=== PATIENT | male | born 1940 | race Caucasian/White ===

== ENCOUNTER 2019-03-15 14:04 | Inpatient (IN) | payer MEDICARE, OTHER ==
[~2019-03-15] VITALS: Ht 167.6 cm; Wt 78.0 kg
[~2019-03-15 14:04] MED LIST: AMIO200T PO; AMIO200T7 PO; AMLO-150 PO; AMLO5TAB4 PO; APIX5TAB PO; ASCO100019 PO; ASPI-515 PO; ASPI81TA45 PO; BUPR100T5 PO; CEFD300C37 PO; CLOP75TA52 PO; DIAZ5TAB PO; EZET10TA18 PO; FURO-92 PO; IBUP-1222 PO; MAGN400T26 PO; MECL-76 PO; METO-93 PO; METO25TA35 PO; MONT10TA9 PO; MULT-658 PO; NEPA3DRO LEFTEYE; NEVANAC 0.1% LEFTEYE; NIAC100035 PO; NITR2.5C3; OMEG1CAP6 PO; OMEP-110 PO; ONDA4TAB12 PO; OXYC-302 PO; OXYC-307 PO; OXYC10TA6 PO; OXYC1TAB7 PO; OXYC7.5T PO; PANT40TA5 PO; POLY17PO5 PO; POTA20TA6 PO; PRED20TA PO; PRED5TAB PO; RAMI10CA36 PO; RAMI10CA59 PO; TAMS-11 PO; TEMA30CA PO; TRAM50TA2 PO; UBID100C24 PO; [UNRECOGNIZED DRUG - CODE] PO
--- NOTE | 2019-03-15 14:17 | NUR ---
PT BIB CARE FLIGHT FROM [place] AFTER GLF AT HOME CAUSING R HIP FX. PT CURRENTLY ON HOSPICE, FTT AND DEMENTIA. POOR HISTORIAN. 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 CONNECTED TO ALL MONITORING, TACHY HR (AFIB), HTN, RAPID RR. BILATERAL PEDAL PULSES DOPPLERED AND MARKED. MD TO BEDSIDE. AWAITING FURTHER ORDERS AT THIS TIME. CALL LIGHT WITHIN REACH
--- NOTE | 2019-03-15 14:37 | NUR ---
ORDERS RECEIVED AT THIS TIME
--- NOTE | 2019-03-15 14:46 | NUR ---
LABS AND RAD AT BEDSIDE
--- NOTE | 2019-03-15 14:51 | NUR ---
NO MED LIST RECEIVED FROM SENDING FACILITY, UNABLE TO COMPLETE MED REC AT THIS TIME
[2019-03-15 14:55] LABS: BASOPHILS # (AUTO) 0.04 x10^3/uL (0-0.1); BASOPHILS % (AUTO) 0 % (0-1); EOSINOPHILS # (AUTO) 0.05 x10^3/uL (0-0.4); EOSINOPHILS % (AUTO) 0 % (1-7); LYMPHOCYTES # (AUTO) 1.14 x10^3/uL (1-3.4); LYMPHOCYTES % (AUTO) 9 % (22-44); MD NO; MEAN CORPUSCULAR HEMOGLOBIN 26.7 pg (27.5-34.5); MEAN CORPUSCULAR HGB CONC 32.7 g/dL (33.2-36.2); MEAN CORPUSCULAR VOLUME 81.8 fL (81-97); MEAN PLATELET VOLUME 7.7 fL (7.4-10.4); MONOCYTES # (AUTO) 1.08 x10^3/uL (0.2-0.8); MONOCYTES % (AUTO) 9 % (2-9); NEUTROPHILS # (AUTO) 10.25 x10^3/uL (1.8-6.8); NEUTROPHILS % (AUTO) 82 % (42-75); PLATELET COUNT 284 x10^3/uL (130-400); RED BLOOD COUNT 5.38 x10^6/uL (4.38-5.82); RED CELL DISTRIBUTION WIDTH 16.4 % (9.4-14.8)
[2019-03-15 14:59] LABS: INTERNATIONAL NORMALIZED RATIO 1.07 (0.93-1.1); PROTHROMBIN TIME 11.2 Seconds (9.6-11.5)
[2019-03-15 15:03] LABS: ALBUMIN 2.8 g/dL (3.4-5.0); ANION GAP 10 mmol/L (5-15); CALCIUM 9.4 mg/dL (8.5-10.1); CHLORIDE 103 mmol/L (98-107)
[2019-03-15 15:04] LABS: CREATININE 1.26 mg/dL (0.7-1.3)
--- NOTE | 2019-03-15 15:23 | NUR ---
ALL RESULTS BACK AT THIS TIME, CHART UP FOR RECHECK
--- NOTE | 2019-03-15 15:30 | NUR ---
SW TO BEDSIDE.
[2019-03-15] MEDS ORDERED: DILTIAZEM 5 MG/ML, 5ML ONE ×2 (15:59→18:11)
[2019-03-15] MEDS ORDERED: DILTIAZEM 5 MG/ML, 5ML IVPush ONE ×2 (16:00→17:30)
[2019-03-15] MEDS ORDERED: CEFTRIAXONE PMX 1GM/50ML 50 ML IV ONE (16:00)
[2019-03-15] MEDS ORDERED: FENTANYL PF 100 MCG/2ML IV ONE ×2 (16:00→17:00)
--- NOTE | 2019-03-15 16:03 | NUR ---
REPORT RECEIVED FROM RN NANDO FREY. ASSUMED CARE OF PT. PT CURRENTLY RESTING ON GURNEY. PER , PT IS "VERY HARD OF HEARING". DIFFICULTY TO ASCERTAIN PT'S ORIENTATION D/T THIS. PT MEDICATED ORDERED FOR AFIB NOTED ON CARDIAC MONITORS 120'S-130S. PT ON CONT BP, CARDIAC AND O2 MONITORS. CALL LIGHT WITHIN REACH. WILL CONT TO MONITOR PT.
[2019-03-15] MEDS ORDERED: FENTANYL PF 100 MCG/2ML ONE ×2 (16:17→17:01)
[2019-03-15] MEDS ORDERED: CEFTRIAXONE PMX 1GM/50ML 50 ML ONE (16:17)
[2019-03-15] MEDS ORDERED: ETOMIDATE 20 MG/10 ML ONE (16:37)
--- NOTE | 2019-03-15 16:54 | NUR ---
CONSENT SIGNED FOR REDUCTION OF RIGHT HIP
[2019-03-15] MEDS ORDERED: ETOMIDATE 20 MG/10 ML IVPush ONE (17:00)
[2019-03-15] MEDS ORDERED: DILTIAZEM 125 MG in SODIUM CHLORIDE 0.9% 100 ML IV SCH (17:04)
--- NOTE | 2019-03-15 17:38 | NUR ---
CON SED COMPLETE, KNEE IMMOBILIZER APPLIED TO RIGHT LEG THEN PT TAKEN TO CT FOR SCAN. PT TOLERATED WELL. VSS DURING AND AFTER PROCEDURE. AT BEDSIDE. HOSPITALIST AT BEDSIDE FOR ADMIT ASSESSMENT. PT SLEEPING INTERMITTENTLY IN BED. ARGENIS. REPORT GIVEN TO SUDARSHAN TAMEZ
--- NOTE | 2019-03-15 17:38 | NUR ---
ADMITTING MAME MCNEILL AT BEDSIDE FOR EVAL AT THIS TIME. AT BEDSIDE. PT ON CONT BP, CARDIAC AND O2 MONITORS. CALL LIGHT WITHIN REACH. WILL CONT TO MONITOR PT.
--- NOTE | 2019-03-15 18:56 | NUR ---
REPORT GIVEN TO OLEG TAMEZ, PT READY FOR TRANSPORT
[2019-03-15] MEDS: MORPHINE SULFATE 4 MG/ML, 1ML IVPush PRN (19:44)
[2019-03-15 20:36] VITALS: BP 131/72
[2019-03-15] MEDS: D5%-0.45% NACL 1,000 ML IV SCH (22:07)
[2019-03-15 22:11] VITALS: BP 131/72
[2019-03-15] MEDS ORDERED: FINA5TAB4 PO (23:59)
[2019-03-15] MEDS ORDERED: BUPR150T73 PO (23:59)
[2019-03-15] MEDS ORDERED: PRED5TAB PO (23:59)
[2019-03-16 00:34] VITALS: BP 107/64
[2019-03-16] MEDS: DILTIAZEM 125 MG in SODIUM CHLORIDE 0.9% 100 ML IV SCH ×2 (01:04→05:37)
[2019-03-16 05:15] LABS: BASOPHILS # (AUTO) 0.05 x10^3/uL (0-0.1); BASOPHILS % (AUTO) 0 % (0-1); EOSINOPHILS # (AUTO) 0.01 x10^3/uL (0-0.4); EOSINOPHILS % (AUTO) 0 % (1-7); LYMPHOCYTES # (AUTO) 1.31 x10^3/uL (1-3.4); LYMPHOCYTES % (AUTO) 12 % (22-44); MD NO; MEAN CORPUSCULAR HEMOGLOBIN 26.6 pg (27.5-34.5); MEAN CORPUSCULAR HGB CONC 32.6 g/dL (33.2-36.2); MEAN CORPUSCULAR VOLUME 81.7 fL (81-97); MEAN PLATELET VOLUME 7.7 fL (7.4-10.4); MONOCYTES # (AUTO) 1.43 x10^3/uL (0.2-0.8); MONOCYTES % (AUTO) 13 % (2-9); NEUTROPHILS # (AUTO) 8.08 x10^3/uL (1.8-6.8); NEUTROPHILS % (AUTO) 74 % (42-75); PLATELET COUNT 240 x10^3/uL (130-400); RED BLOOD COUNT 4.85 x10^6/uL (4.38-5.82); RED CELL DISTRIBUTION WIDTH 16.8 % (9.4-14.8)
[2019-03-16 05:26] LABS: ALANINE AMINOTRANSFERASE 35 U/L (12-78); ALBUMIN 2.3 g/dL (3.4-5.0); ANION GAP 8 mmol/L (5-15); CALCIUM 8.7 mg/dL (8.5-10.1); CHLORIDE 106 mmol/L (98-107); CREATININE 1.17 mg/dL (0.7-1.3)
[2019-03-16 05:37] LABS: ALKALINE PHOSPHATASE 72 U/L (45-117); BILIRUBIN,TOTAL 0.8 mg/dL (0.2-1.0); THYROID STIMULATING HORMONE 0.985 mIU/L (0.358-3.740); TOTAL PROTEIN 6.7 g/dL (6.4-8.2)
[2019-03-16 07:07] VITALS: BP 114/69
[2019-03-16] MEDS: MORPHINE SULFATE 4 MG/ML, 1ML IVPush PRN ×2 (09:04→11:03)
[2019-03-16] MEDS: D5%-0.45% NACL 1,000 ML IV SCH (11:02)
[2019-03-16 12:46] VITALS: BP 97/59
[2019-03-16] MEDS ORDERED: TEMAZEPAM 30 MG CAPSULE PO PRN (18:00)
[2019-03-16 20:03] VITALS: BP 118/63
[2019-03-16] MEDS: APIXABAN 5 MG TABLET PO SCH (21:00)
[2019-03-16] MEDS: METOPROLOL TARTRATE 25 MG TABLET PO SCH (21:00)
[2019-03-17 00:39] VITALS: BP 110/60
[2019-03-17] MEDS: D5%-0.45% NACL 1,000 ML IV SCH ×2 (01:24→15:21)
[2019-03-17 09:39] VITALS: BP 126/70
[2019-03-17] MEDS: RAMIPRIL 5 MG CAP PO SCH (09:42)
[2019-03-17] MEDS: BUPROPION SR 150 MG TABLET PO SCH (09:43)
[2019-03-17] MEDS: METOPROLOL TARTRATE 25 MG TABLET PO SCH ×2 (09:43→20:45)
[2019-03-17] MEDS: APIXABAN 5 MG TABLET PO SCH ×2 (09:43→20:45)
[2019-03-17] MEDS: TAMSULOSIN 0.4 MG CAP.ER.24H PO SCH (09:43)
[2019-03-17] MEDS: MONTELUKAST 10 MG TABLET PO SCH (09:43)
[2019-03-17] MEDS: AMIODARONE 200 MG TABLET PO SCH (09:43)
[2019-03-17] MEDS: FINASTERIDE 5 MG TABLET PO SCH (09:43)
[2019-03-17] MEDS ORDERED: BISACODYL 10 MG SUPP PR PRN (12:00)
[2019-03-17] MEDS: DOCUSATE 50 MG/5 ML, 10ML UDC PO SCH ×2 (13:00→20:45)
[2019-03-17 15:19] VITALS: BP 103/59
[2019-03-17 19:28] VITALS: BP 118/63
[2019-03-18] MEDS: DOCUSATE 50 MG/5 ML, 10ML UDC PO SCH (08:50)
[2019-03-18] MEDS: MONTELUKAST 10 MG TABLET PO SCH (08:50)
[2019-03-18] MEDS: TAMSULOSIN 0.4 MG CAP.ER.24H PO SCH (08:50)
[2019-03-18] MEDS: METOPROLOL TARTRATE 25 MG TABLET PO SCH (08:51)
[2019-03-18] MEDS: APIXABAN 5 MG TABLET PO SCH (08:51)
[2019-03-18] MEDS: BUPROPION SR 150 MG TABLET PO SCH (08:51)
[2019-03-18] MEDS: FINASTERIDE 5 MG TABLET PO SCH (08:51)
[2019-03-18] MEDS: RAMIPRIL 5 MG CAP PO SCH (08:51)
[2019-03-18] MEDS: AMIODARONE 200 MG TABLET PO SCH (08:51)
[2019-03-18] MEDS ORDERED: LORazepam INTENSOL 2 MG/ML PO PRN (09:00)
[2019-03-18] MEDS ORDERED: OXYcodone 5 MG/5 ML ORAL.SOL UDC PO PRN (09:00)
[2019-03-18] MEDS ORDERED: LORazepam 0.5MG TABLET ONE (12:54)
== END 2019-03-18 14:04 | disposition hospice, home (50) | DRG 871 ==
LOC: ED 15:44 → EDIP 15:45 → ED 16:05 → 5SO 19:16 → 3NW 03-17 17:12 → 5SO 03-17 17:14 → 3NW 03-17 19:23
PROVIDERS: ADMIT Internal Medicine; ATTEND Internal Medicine
PROC: 0SS9XZZ Reposition Right Hip Joint, External Approach (ICD-10-PCS; principal; 2019-03-15)
DX: A41.9 Sepsis, unspecified organism (principal); R53.2 Functional quadriplegia; J18.9 Pneumonia, unspecified organism; S73.004A Unspecified dislocation of right hip, initial encounter; I50.22 Chronic systolic (congestive) heart failure; G93.40 Encephalopathy, unspecified; D68.69 Other thrombophilia; E46 Unspecified protein-calorie malnutrition; J98.11 Atelectasis; I48.2 Chronic atrial fibrillation; E66.3 Overweight; F03.90 Unspecified dementia, unspecified severity, without behavioral disturbance, psychotic disturbance, mood disturbance, and anxiety; G89.29 Other chronic pain; H54.7 Unspecified visual loss; H91.90 Unspecified hearing loss, unspecified ear; I11.0 Hypertensive heart disease with heart failure; I25.10 Atherosclerotic heart disease of native coronary artery without angina pectoris; K21.9 Gastro-esophageal reflux disease without esophagitis; N40.0 Benign prostatic hyperplasia without lower urinary tract symptoms; R13.10 Dysphagia, unspecified; W07.XXXA Fall from chair, initial encounter; Z51.5 Encounter for palliative care; Z66 Do not resuscitate; Z79.01 Long term (current) use of anticoagulants; Z82.49 Family history of ischemic heart disease and other diseases of the circulatory system; I25.2 Old myocardial infarction; Y92.009 Unspecified place in unspecified non-institutional (private) residence as the place of occurrence of the external cause; Z86.73 Personal history of transient ischemic attack (TIA), and cerebral infarction without residual deficits; Z91.81 History of falling; Z95.5 Presence of coronary angioplasty implant and graft; Z99.3 Dependence on wheelchair; Z68.27 Body mass index [BMI] 27.0-27.9, adult
CPT/HCPCS: 36415; 70450; 71045; 72170; 80048; 80053; 82040; 83605; 83735; 84100; 84145; 84443; 85025; 85610; 87040; 93005; 96374; 96375; 96376; G0378; J0696; J3010; J2270